=== PATIENT | female | born 1955 | race African-American/Black ===

== ENCOUNTER 2018-11-27 17:53 | Emergency (ER) | payer MEDICAID, MEDICARE ==
[~2018-11-27] VITALS: Ht 154.9 cm; Wt 68.0 kg
[2018-11-28] MEDS ORDERED: IBUPROFEN 800 MG TAB PO ONE
[2018-11-28 00:21] VITALS: BP 160/71
== END 2018-11-28 00:32 | disposition home or self-care (01) ==
LOC: ER 17:56
DX: S63.652A Sprain of metacarpophalangeal joint of right middle finger, initial encounter (principal); W23.0XXA Caught, crushed, jammed, or pinched between moving objects, initial encounter; Y93.89 Activity, other specified; Y92.89 Other specified places as the place of occurrence of the external cause; Y99.8 Other external cause status
CPT/HCPCS: 29130; 73100

== ENCOUNTER 2022-12-05 07:38 | Emergency (ER) | payer MEDICARE, OTHER ==
[~2022-12-05] VITALS: Ht 152.4 cm; Wt 62.3 kg
[2022-12-05 08:01] VITALS: BP 168/49; PULSE 56; RESP 16; TEMP 97.4; O2SAT 96
[2022-12-05] MEDS ORDERED: IBUPROFEN 600 MG TAB PO ONE (08:30)
[2022-12-05] MEDS ORDERED: ACET30TA15 PO (10:07)
[2022-12-05] MEDS ORDERED: IBUP1TAB5 PO (10:07)
== END 2022-12-05 10:12 | disposition home or self-care (01) ==
LOC: ER 07:38
DX: S92.511A Displaced fracture of proximal phalanx of right lesser toe(s), initial encounter for closed fracture (principal); R60.0 Localized edema; W01.0XXA Fall on same level from slipping, tripping and stumbling without subsequent striking against object, initial encounter; Y93.89 Activity, other specified; Y92.89 Other specified places as the place of occurrence of the external cause; Y99.8 Other external cause status
CPT/HCPCS: 29515; 73630

== ENCOUNTER 2023-04-15 17:57 | Emergency (ER) | payer OTHER ==
[~2023-04-15] VITALS: Ht 152.4 cm; Wt 64.3 kg
[~2023-04-15 17:57] MED LIST: ACET30TA15 PO; IBUP1TAB5 PO
[2023-04-15] MEDS ORDERED: ONDANSETRON ODT 4 MG TAB PO ONE (18:30)
[2023-04-15] MEDS ORDERED: ZOFR4T PO (20:13)
[2023-04-15] MEDS ORDERED: NAP500T PO (20:13)
[2023-04-15 20:24] VITALS: BP 152/74; PULSE 66; RESP 18; TEMP 97.8; O2SAT 99
== END 2023-04-15 20:26 | disposition home or self-care (01) ==
LOC: ER 17:57
DX: S00.83XA Contusion of other part of head, initial encounter (principal); W18.09XA Striking against other object with subsequent fall, initial encounter; Y93.89 Activity, other specified; Y92.89 Other specified places as the place of occurrence of the external cause; Y99.8 Other external cause status
CPT/HCPCS: 70450; 70486